=== PATIENT | female | born 1975 | race Caucasian/White ===

== ENCOUNTER 2017-03-20 17:24 | Emergency (ER) | payer MEDICARE, MEDICAID ==
[2017-03-20 18:11] LABS: ABSOLUTE BASOPHILS # (AUTO) 0.1 10^3/uL (0.0-0.2); ABSOLUTE EOSINOPHILS # (AUTO) 0.1 10^3/uL (0.0-0.6); ABSOLUTE LYMPHOCYTES (AUTO) 2.5 10^3/uL (0.5-4.7); ABSOLUTE MONOCYTES (AUTO) 0.5 10^3/uL (0.1-1.4); ABSOLUTE NEUT (AUTO) 5.6 10^3/uL (1.7-8.2); BASOPHILS % (AUTO) 0.8 % (0-2); EOSINOPHILS % (AUTO) 1.2 % (0-6); HEMATOCRIT 44.4 % (36.0-47.0); HEMOGLOBIN 14.6 g/dL (12.0-15.5); HGB HCT DIFFERENCE -0.6; LYMPHOCYTES % (AUTO) 28.1 % (13-45); MEAN CORPUSCULAR HEMOGLOBIN 26.4 pg (27.0-33.4); MEAN CORPUSCULAR HGB CONC 32.8 g/dL (32.0-36.0); MEAN CORPUSCULAR VOLUME 81 fl (80-97); RED BLOOD COUNT 5.51 10^6/uL (3.72-5.28); RED CELL DISTRIBUTION WIDTH 15.1 % (11.5-14.0); SEGMENTED NEUTROPHILS % (AUTO) 63.9 % (42-78); WHITE BLOOD COUNT 8.8 10^3/uL (4.0-10.5)
[2017-03-20] MEDS ORDERED: LIDOCAINE 5% (700 MG) TRANSDERMAL ADH..PATCH TP ONE (18:28)
[2017-03-20 18:29] LABS: ALANINE AMINOTRANSFERASE 39 U/L (9-52); ALBUMIN 4.4 g/dL (3.5-5.0); ALKALINE PHOSPHATASE 87 U/L (38-126); ANION GAP 11 (5-19); ASPARTATE AMINO TRANSFERASE 20 U/L (14-36); BILIRUBIN,DIRECT 0.3 mg/dL (0.0-0.4); BILIRUBIN,TOTAL 0.6 mg/dL (0.2-1.3); BLOOD UREA NITROGEN 9 mg/dL (7-20); CALCIUM 9.4 mg/dL (8.4-10.2); CARBON DIOXIDE 29 mmol/L (22-30); CHLORIDE 101 mmol/L (98-107); CREATINE KINASE 44 U/L (30-135); CREATININE RESULT 0.81 mg/dL (0.52-1.25); GLUCOSE 102 mg/dL (75-110); POTASSIUM 3.2 mmol/L (3.6-5.0); SODIUM 141.4 mmol/L (137-145); TOTAL PROTEIN 7.5 g/dL (6.3-8.2)
[2017-03-20] MEDS ORDERED: ACETAMINOPHEN 325 MG TABLET PO ONE (18:29)
--- NOTE | 2017-03-20 18:35 | RADIOLOGY REPORT (SQ) ---
EXAM DESCRIPTION: CHEST SINGLE VIEW COMPLETED DATE/TIME: 03/20/2017 6:21 pm REASON FOR STUDY: cp COMPARISON: None. EXAM PARAMETERS: NUMBER OF VIEWS: One view. TECHNIQUE: Single frontal radiographic view of the chest acquired. RADIATION DOSE: NA LIMITATIONS: None. FINDINGS: LUNGS AND PLEURA: No opacities, masses or pneumothorax. No pleural effusion. MEDIASTINUM AND HILAR STRUCTURES: No masses. Contour normal. HEART AND VASCULAR STRUCTURES: Heart normal in size. Normal vasculature. BONES: No acute findings. HARDWARE: None in the chest. OTHER: No other significant finding. IMPRESSION: NO ACUTE RADIOGRAPHIC FINDING IN THE CHEST. TECHNICAL DOCUMENTATION: JOB ID: [id number]
[2017-03-20] MEDS ORDERED: DIAZEPAM INJ 10 MG/2 ML DISP.SYRIN IV ONE (18:40)
[2017-03-20 18:41] LABS: CREATINE KINASE MB < 0.22 ng/mL (<4.55); TROPONIN I < 0.012 ng/mL
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
[2017-03-20] MEDS ORDERED: DIAZEPAM INJ 10 MG/2 ML DISP.SYRIN ONE (19:09)
[2017-03-20] MEDS ORDERED: FENTANYL CITRATE INJ/PF 100 MCG/2 ML AMPUL IV ONE (19:12)
[2017-03-20] MEDS ORDERED: MAGNESIUM OXIDE 400 MG TABLET PO ONE (19:53)
[2017-03-20] MEDS ORDERED: POTASSIUM CHLORIDE 20 MEQ/15 ML UDCUP PO ONE (19:53)
[2017-03-20 22:08] VITALS: BP 117/78
--- NOTE | 2017-03-21 07:55 | EKG REPORT ---
SEVERITY:- ABNORMAL ECG - SINUS RHYTHM PROBABLE POSTERIOR INFARCT : Confirmed by: Rm Means MD 21-Mar-2017 07:54:42
== END 2017-03-20 22:15 | disposition home or self-care (01) ==
LOC: ER 17:24
DX: R07.9 Chest pain, unspecified (principal); F41.9 Anxiety disorder, unspecified; I10 Essential (primary) hypertension; R20.0 Anesthesia of skin; Z88.6 Allergy status to analgesic agent
CPT/HCPCS: 93005; 99285; 96374; 36415; 82553; 82550; 85025; 80053; 84484; 71010; 93010; A9270 ×3; J3360; J3010

== ENCOUNTER 2017-03-29 14:55 | Emergency (ER) | payer MEDICARE, MEDICAID ==
--- NOTE | 2017-03-29 16:45 | ER Document Report ---
ED Medical Screen (RME) - General Information source: Patient TRAVEL OUTSIDE OF THE [place] IN LAST 30 DAYS: No - HPI Patient complains to provider of: chest pain Associated Symptoms: Other - see above <DIANA SARGENT - Last Filed: 03/29/17 16:40> <EMILY TOWNSEND - Last Filed: 04/04/17 10:50> - General Chief Complaint: Chest Pain Stated Complaint: CHEST PAIN Time Seen by Provider: 03/29/17 16:36 Notes: Patient is a 41 year old female who presents to the ED with complaints of chest pain with onset 30 minutes after mopping and sweeping. Patient states the pain radiates into her left shoulder and neck. Patient reports SOB and states it hurts to breath. Patient has a history of depression and anxiety. (DIANA SARGENT) - Related Data Allergies/Adverse Reactions: aspirin Allergy (Verified 03/29/17 16:35) ibuprofen Allergy (Verified 03/29/17 16:35) NSAIDS (Non-Steroidal Anti-Inflamma Allergy (Verified 03/29/17 16:35) Hives Past Medical History - General Information source: Patient - Social History Cigarette use (# per day): No Renal/ Medical History: Denies: Hx Peritoneal Dialysis <DIANA SARGENT - Last Filed: 03/29/17 16:40> Review of Systems - Review of Systems Constitutional: No symptoms reported EENT: No symptoms reported Cardiovascular: See HPI, Chest pain Respiratory: See HPI, Hurts to breathe, Short of breath Gastrointestinal: No symptoms reported Genitourinary: No symptoms reported Female Genitourinary: No symptoms reported Musculoskeletal: No symptoms reported Skin: No symptoms reported Hematologic/Lymphatic: No symptoms reported Neurological/Psychological: No symptoms reported <DIANA SARGENT - Last Filed: 03/29/17 16:40> Physical Exam - General General appearance: Anxious In distress: None - HEENT Head: Normocephalic, Atraumatic Eyes: Normal Extraocular movements intact: Yes Pupils: PERRL - Respiratory Respiratory status: No respiratory distress Breath sounds: Normal - Cardiovascular Rhythm: Regular Heart sounds: Normal auscultation Murmur: No - Abdominal Distension: No distension - Back Back: Normal - Extremities General upper extremity: Normal inspection, Normal ROM General lower extremity: Normal inspection, Normal ROM - Neurological Neuro grossly intact: Yes - Psychological Associated symptoms: Anxious - Skin Skin Temperature: Warm Skin Moisture: Dry Skin Color: Normal <DIANA SARGENT - Last Filed: 03/29/17 16:40> Course - Laboratory Result Diagrams: 03/29/17 17:09 03/29/17 17:09 <EMILY TOWNSEND - Last Filed: 04/04/17 10:50> - Vital Signs Vital signs: Temp Pulse Resp BP Pulse Ox 98.3 F 97 23 H 114/76 100 03/29/17 19:17 03/29/17 15:19 03/29/17 19:01 03/29/17 19:01 03/29/17 19:01 - Laboratory Laboratory results interpreted by me: 03/29/17 17:09 RBC 5.53 H MCH 26.6 L RDW 15.6 H Doctor's Discharge <DIANA SARGENT - Last Filed: 03/29/17 16:40> <EMILY TOWNSEND - Last Filed: 04/04/17 10:50> - Discharge Clinical Impression: Cervical strain, chest wall pain Condition: Stable Disposition: HOME, SELF-CARE Instructions: Chest Wall Pain ([facility]) Additional Instructions: Muscle Strain You have strained a muscle -- torn the fibers within the muscle. This often occurs with strenuous exertion, or during an injury that suddenly stretches the muscle. The seriousness of a strain varies. Some strains heal within days, others cause problems for months. X-rays cannot show a muscle strain. X-rays are taken only if symptoms suggest that a fracture could be present. The usual treatment of a muscle strain is rest and ice packs. Sometimes, a sling, splint, or crutches may be necessary to rest the muscle. The muscle can be used again once pain subsides. Severe strains require a special exercise and stretching program to prevent permanent stiffness and disability. Your doctor will advise you if this will be necessary. Call the doctor immediately if pain or swelling becomes severe, or if numbness or discoloration develop. Chest Wall Pain Your chest pain has been diagnosed as coming from the chest wall. This is often caused by straining the muscles or joints in the chest during physical activity, direct trauma, coughing, or vigorous vomiting. Persons with arthritis are especially prone to this type of pain, due to inflammation of the cartilage joints near the breast bone. Occasionally, no cause can be found. Rest from strenuous physical activity. This kind of chest pain is usually made worse by movement of the chest. Depending on the symptoms, we may prescribe medicine for pain, muscle relaxation, and antiinflammatory effects. If the pain is new, and seems to be due to muscle strain, cold packs can help. Otherwise, apply gentle warmth to the painful area for 15 minutes every hour or two. You should contact the doctor immediately if things change. Further evaluation is needed if you develop a fever or cough, if the nature of the pain changes, or if you become short of breath. Follow-up with your primary care physician in 3-4 days return for increasing worsening or new symptoms Scribe Documentation - Scribe Written by Deepa:: deepa Saini, 03/29/2017, [id number] acting as scribe for :: Dawood <DIANA SARGENT - Last Filed: 03/29/17 16:40>
[2017-03-29 17:38] LABS: ABSOLUTE BASOPHILS # (AUTO) 0.1 10^3/uL (0.0-0.2); ABSOLUTE EOSINOPHILS # (AUTO) 0.1 10^3/uL (0.0-0.6); ABSOLUTE LYMPHOCYTES (AUTO) 2.8 10^3/uL (0.5-4.7); ABSOLUTE MONOCYTES (AUTO) 0.7 10^3/uL (0.1-1.4); ABSOLUTE NEUT (AUTO) 6.7 10^3/uL (1.7-8.2); BASOPHILS % (AUTO) 0.7 % (0-2); EOSINOPHILS % (AUTO) 0.9 % (0-6); HEMATOCRIT 44.9 % (36.0-47.0); HEMOGLOBIN 14.7 g/dL (12.0-15.5); HGB HCT DIFFERENCE -0.8; LYMPHOCYTES % (AUTO) 27.5 % (13-45); MEAN CORPUSCULAR HEMOGLOBIN 26.6 pg (27.0-33.4); MEAN CORPUSCULAR HGB CONC 32.7 g/dL (32.0-36.0); MEAN CORPUSCULAR VOLUME 81 fl (80-97); MONOCYTES % (AUTO) 6.6 % (3-13); RED BLOOD COUNT 5.53 10^6/uL (3.72-5.28); RED CELL DISTRIBUTION WIDTH 15.6 % (11.5-14.0); SEGMENTED NEUTROPHILS % (AUTO) 64.3 % (42-78); WHITE BLOOD COUNT 10.4 10^3/uL (4.0-10.5)
--- NOTE | 2017-03-29 17:51 | RADIOLOGY REPORT (SQ) ---
EXAM DESCRIPTION: CHEST SINGLE VIEW COMPLETED DATE/TIME: 03/29/2017 5:43 pm REASON FOR STUDY: CP COMPARISON: 03/20/2017 EXAM PARAMETERS: NUMBER OF VIEWS: One view. TECHNIQUE: Single frontal radiographic view of the chest acquired. RADIATION DOSE: NA LIMITATIONS: None. FINDINGS: LUNGS AND PLEURA: No opacities, masses or pneumothorax. No pleural effusion. MEDIASTINUM AND HILAR STRUCTURES: No masses. Contour normal. HEART AND VASCULAR STRUCTURES: Heart normal in size. Normal vasculature. BONES: No acute findings. HARDWARE: None in the chest. OTHER: No other significant finding. IMPRESSION: NO ACUTE RADIOGRAPHIC FINDING IN THE CHEST. TECHNICAL DOCUMENTATION: JOB ID: [id number]
[2017-03-29 17:58] LABS: ALANINE AMINOTRANSFERASE 16 U/L (9-52); ALBUMIN 3.7 g/dL (3.5-5.0); ALKALINE PHOSPHATASE 75 U/L (38-126); ANION GAP 10 (5-19); ASPARTATE AMINO TRANSFERASE 25 U/L (14-36); BILIRUBIN,DIRECT 0.4 mg/dL (0.0-0.4); BILIRUBIN,TOTAL 0.7 mg/dL (0.2-1.3); BLOOD UREA NITROGEN 10 mg/dL (7-20); CALCIUM 8.7 mg/dL (8.4-10.2); CARBON DIOXIDE 22 mmol/L (22-30); CHLORIDE 107 mmol/L (98-107); CREATINE KINASE 42 U/L (30-135); CREATININE RESULT 0.76 mg/dL (0.52-1.25); GLUCOSE 85 mg/dL (75-110); POTASSIUM 3.9 mmol/L (3.6-5.0); TOTAL PROTEIN 6.5 g/dL (6.3-8.2)
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
[2017-03-29 19:14] VITALS: BP 114/76
--- NOTE | 2017-03-29 22:42 | EKG REPORT ---
SEVERITY:- NORMAL ECG - SINUS RHYTHM : Confirmed by: Juan England 29-Mar-2017 22:42:22
== END 2017-03-29 19:17 | disposition home or self-care (01) ==
LOC: ER 14:55
DX: S16.1XXA Strain of muscle, fascia and tendon at neck level, initial encounter (principal); R07.89 Other chest pain; R42 Dizziness and giddiness; R11.0 Nausea; X58.XXXA Exposure to other specified factors, initial encounter; Y93.E5 Activity, floor mopping and cleaning; Y92.009 Unspecified place in unspecified non-institutional (private) residence as the place of occurrence of the external cause; E78.00 Pure hypercholesterolemia, unspecified
CPT/HCPCS: 36415; 71010; 80053; 82550; 82553; 84484; 85025; 85379; 93005; 93010; 99285

== ENCOUNTER 2017-04-04 10:14 | Emergency (ER) | payer MEDICARE, MEDICAID ==
[2017-04-04] MEDS ORDERED: MAG HYDROX/AL HYDROX/SIMETH SUSP 30 ML UDCUP PO ONE (10:40)
[2017-04-04] MEDS ORDERED: MORPHINE SULFATE 10 MG/ML INJ IV PRN (10:40)
[2017-04-04] MEDS ORDERED: METOCLOPRAMIDE HCL ORAL SOLN 10 MG/10 ML UDCUP PO ONE (10:40)
[2017-04-04] MEDS ORDERED: LIDOCAINE 2% VISCOUS SOLN 20 ML UDCUP PO ONE (10:40)
--- NOTE | 2017-04-04 10:41 | ER Document Report ---
ED Medical Screen (RME) - General Chief Complaint: Chest Pain Stated Complaint: CHEST PAIN Time Seen by Provider: 04/04/17 10:39 Mode of Arrival: Ambulatory Information source: Patient Notes: This is a 41-year-old female with a history of depression and presents to the emergency room with intermittent retrosternal chest pressure for the past 3 days. Patient does state that it is associated with shortness of breath. She states that the pain seems to be worse with movement. She states that the pain sometimes will radiate to the left upper extremity. TRAVEL OUTSIDE OF THE [place] IN LAST 30 DAYS: No - Related Data Allergies/Adverse Reactions: aspirin Allergy (Verified 03/29/17 16:35) ibuprofen Allergy (Verified 03/29/17 16:35) NSAIDS (Non-Steroidal Anti-Inflamma Allergy (Verified 03/29/17 16:35) Hives Past Medical History - Social History Chew tobacco use (# tins/day): No Drug Abuse: None - Past Medical History Cardiac Medical History: Reports: Hx Hypercholesterolemia Renal/ Medical History: Denies: Hx Peritoneal Dialysis Musculoskeltal Medical History: Reports Hx Arthritis - OA Past Surgical History: Reports: Hx Gynecologic Surgery - hysterectomy
[2017-04-04 10:58] LABS: ABSOLUTE EOSINOPHILS # (AUTO) 0.1 10^3/uL (0.0-0.6); ABSOLUTE LYMPHOCYTES (AUTO) 1.7 10^3/uL (0.5-4.7); ABSOLUTE MONOCYTES (AUTO) 0.4 10^3/uL (0.1-1.4); ABSOLUTE NEUT (AUTO) 5.4 10^3/uL (1.7-8.2); BASOPHILS % (AUTO) 0.5 % (0-2); EOSINOPHILS % (AUTO) 1.5 % (0-6); HEMATOCRIT 42.6 % (36.0-47.0); HEMOGLOBIN 14.3 g/dL (12.0-15.5); HGB HCT DIFFERENCE 0.3; LYMPHOCYTES % (AUTO) 21.8 % (13-45); MEAN CORPUSCULAR HEMOGLOBIN 27.3 pg (27.0-33.4); MEAN CORPUSCULAR HGB CONC 33.5 g/dL (32.0-36.0); MEAN CORPUSCULAR VOLUME 82 fl (80-97); MONOCYTES % (AUTO) 5.6 % (3-13); RED BLOOD COUNT 5.23 10^6/uL (3.72-5.28); RED CELL DISTRIBUTION WIDTH 15.2 % (11.5-14.0); SEGMENTED NEUTROPHILS % (AUTO) 70.6 % (42-78); WHITE BLOOD COUNT 7.6 10^3/uL (4.0-10.5)
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
--- NOTE | 2017-04-04 11:07 | RADIOLOGY REPORT (SQ) ---
EXAM DESCRIPTION: CHEST SINGLE VIEW COMPLETED DATE/TIME: 04/04/2017 10:51 am REASON FOR STUDY: cp COMPARISON: 03/29/2017 EXAM PARAMETERS: NUMBER OF VIEWS: One view. TECHNIQUE: Single frontal radiographic view of the chest acquired. RADIATION DOSE: NA LIMITATIONS: None. FINDINGS: LUNGS AND PLEURA: No opacities, masses or pneumothorax. No pleural effusion. MEDIASTINUM AND HILAR STRUCTURES: No masses. Contour normal. HEART AND VASCULAR STRUCTURES: Heart normal in size. Normal vasculature. BONES: No acute findings. HARDWARE: None in the chest. OTHER: No other significant finding. IMPRESSION: NO ACUTE RADIOGRAPHIC FINDING IN THE CHEST. TECHNICAL DOCUMENTATION: JOB ID: [id number]
[2017-04-04] MEDS ORDERED: BUSPIRONE HCL 10 MG TABLET PO ONE (11:09)
[2017-04-04] MEDS ORDERED: TRAMADOL HCL 50 MG TABLET PO ONE (11:09)
[2017-04-04] MEDS ORDERED: VENLAFAXINE HCL 75 MG TABLET PO ONE (11:09)
[2017-04-04 11:12] LABS: ALANINE AMINOTRANSFERASE 27 U/L (9-52); ALBUMIN 3.8 g/dL (3.5-5.0); ALKALINE PHOSPHATASE 93 U/L (38-126); ANION GAP 9 (5-19); ASPARTATE AMINO TRANSFERASE 18 U/L (14-36); BILIRUBIN,DIRECT 0.3 mg/dL (0.0-0.4); BILIRUBIN,TOTAL 0.4 mg/dL (0.2-1.3); BLOOD UREA NITROGEN 11 mg/dL (7-20); CALCIUM 9.4 mg/dL (8.4-10.2); CARBON DIOXIDE 27 mmol/L (22-30); CHLORIDE 105 mmol/L (98-107); CREATINE KINASE 35 U/L (30-135); CREATININE RESULT 0.86 mg/dL (0.52-1.25); GLUCOSE 89 mg/dL (75-110); POTASSIUM 4.1 mmol/L (3.6-5.0); SODIUM 140.6 mmol/L (137-145); TOTAL PROTEIN 6.6 g/dL (6.3-8.2)
[2017-04-04 11:22] LABS: CREATINE KINASE MB < 0.22 ng/mL (<4.55); TROPONIN I < 0.012 ng/mL
--- NOTE | 2017-04-04 13:39 | EKG REPORT ---
SEVERITY:- NORMAL ECG - SINUS RHYTHM : Confirmed by: Roberta Erickson MD 04-Apr-2017 13:38:34
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
[2017-04-04 13:50] VITALS: BP 122/76
== END 2017-04-04 13:50 | disposition home or self-care (01) ==
LOC: ER 10:14
DX: R07.9 Chest pain, unspecified (principal); F32.9 Major depressive disorder, single episode, unspecified; F41.9 Anxiety disorder, unspecified; Z79.899 Other long term (current) drug therapy
CPT/HCPCS: 93005; 99285; 36415; 82553; 82550; 85025; 80053; 84484; 71010; 93010; J3490; A9270 ×4

== ENCOUNTER 2017-04-08 18:04 | Emergency (ER) | payer MEDICARE, OTHER, MEDICAID ==
[2017-04-08 19:23] LABS: ABSOLUTE BASOPHILS # (AUTO) 0.1 10^3/uL (0.0-0.2); ABSOLUTE EOSINOPHILS # (AUTO) 0.1 10^3/uL (0.0-0.6); ABSOLUTE LYMPHOCYTES (AUTO) 1.8 10^3/uL (0.5-4.7); ABSOLUTE MONOCYTES (AUTO) 0.5 10^3/uL (0.1-1.4); ABSOLUTE NEUT (AUTO) 5.4 10^3/uL (1.7-8.2); BASOPHILS % (AUTO) 0.8 % (0-2); EOSINOPHILS % (AUTO) 0.9 % (0-6); HEMATOCRIT 41.1 % (36.0-47.0); HEMOGLOBIN 14.1 g/dL (12.0-15.5); HGB HCT DIFFERENCE 1.2; LYMPHOCYTES % (AUTO) 22.8 % (13-45); MEAN CORPUSCULAR HEMOGLOBIN 27.2 pg (27.0-33.4); MEAN CORPUSCULAR HGB CONC 34.4 g/dL (32.0-36.0); MEAN CORPUSCULAR VOLUME 79 fl (80-97); MONOCYTES % (AUTO) 6.4 % (3-13); RED BLOOD COUNT 5.19 10^6/uL (3.72-5.28); RED CELL DISTRIBUTION WIDTH 15.1 % (11.5-14.0); SEGMENTED NEUTROPHILS % (AUTO) 69.1 % (42-78); WHITE BLOOD COUNT 7.8 10^3/uL (4.0-10.5)
[2017-04-08 19:50] LABS: ALANINE AMINOTRANSFERASE 27 U/L (9-52); ALKALINE PHOSPHATASE 86 U/L (38-126); ANION GAP 13 (5-19); ASPARTATE AMINO TRANSFERASE 16 U/L (14-36); BILIRUBIN,DIRECT 0.3 mg/dL (0.0-0.4); BILIRUBIN,TOTAL 0.7 mg/dL (0.2-1.3); BLOOD UREA NITROGEN 13 mg/dL (7-20); CALCIUM 9.6 mg/dL (8.4-10.2); CARBON DIOXIDE 24 mmol/L (22-30); CHLORIDE 109 mmol/L (98-107); CREATININE RESULT 0.94 mg/dL (0.52-1.25); GLUCOSE 100 mg/dL (75-110); POTASSIUM 3.1 mmol/L (3.6-5.0); SODIUM 146.4 mmol/L (137-145)
[2017-04-08 19:53] LABS: ALCOHOL < 10 mg/dL (NONE DETECTED)
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
[2017-04-08] MEDS ORDERED: ACETAMINOPHEN 325 MG TABLET PO ONE (21:40)
[2017-04-08 21:53] LABS: APPEARANCE,URINE CLOUDY; BILIRUBIN,URINE NEGATIVE (NEGATIVE); GLUCOSE, URINE NEGATIVE (NEGATIVE); KETONES,URINE NEGATIVE (NEGATIVE); LEUKOCYTE ESTERASE,URINE NEGATIVE (NEGATIVE); NITRITE,URINE NEGATIVE (NEGATIVE); PROTEIN,URINE NEGATIVE (NEGATIVE); URINE SPECIFIC GRAVITY 1.032; UROBILINOGEN,URINE NEGATIVE mg/dL (<2.0)
[2017-04-08 22:03] LABS: URINE BARBITURATES SCREEN NEGATIVE; URINE METHADONE SCREEN NEGATIVE; URINE OPIATES LOW NEGATIVE; URINE PHENCYCLIDINE SCREEN NEGATIVE
[2017-04-08] MEDS ORDERED: DIAZEPAM 5 MG TABLET PO ONE (23:06)
[2017-04-09] MEDS ORDERED: BUSPIRONE HCL 10 MG TABLET PO ONE (05:05)
--- NOTE | 2017-04-09 09:43 | ER Document Report ---
Doctor's Note Notes: 04/09/17 09:40 Medical rounds: Chart reviewed and patient interviewed briefly. Vital signs are stable. Laboratory values are satisfactory. Patient is alert, oriented, and conversant. She denies somatic complaints. She is medically stable, pending psych. evaluation.
--- NOTE | 2017-04-09 12:10 | EKG REPORT ---
SEVERITY:- OTHERWISE NORMAL ECG - SINUS RHYTHM VENTRICULAR PREMATURE COMPLEX BORDERLINE LEFT AXIS DEVIATION : Confirmed by: Roberta Erickson MD 09-Apr-2017 12:10:24
[2017-04-09] MEDS ORDERED: ONDANSETRON 4 MG TAB.RAPDIS PO ONE (13:05)
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
[2017-04-09 14:13] VITALS: BP 133/71
== END 2017-04-09 14:13 | disposition home or self-care (01) ==
LOC: ER 18:04
DX: F32.9 Major depressive disorder, single episode, unspecified (principal); F17.200 Nicotine dependence, unspecified, uncomplicated; Z79.899 Other long term (current) drug therapy
CPT/HCPCS: 93005; 99284; 36415; 80307 ×4; 84703; 85025; 80053; 81001; 93010; A9270 ×4; S0119

== ENCOUNTER 2017-05-26 17:20 | Emergency (ER) | payer MEDICARE, MEDICAID ==
[2017-05-26] MEDS ORDERED: NORMAL SALINE 1000 ML 1,000 ML IV ONE (18:05)
[2017-05-26] MEDS ORDERED: ONDANSETRON HCL INJ/PF 4 MG/2 ML SDV IV ONE (18:05)
--- NOTE | 2017-05-26 18:06 | ER Document Report ---
ED Medical Screen (RME) - General Chief Complaint: Epigastric Pain Stated Complaint: RIB AND CHEST PAIN Time Seen by Provider: 05/26/17 18:03 Mode of Arrival: Wheelchair Information source: Patient TRAVEL OUTSIDE OF THE [place] IN LAST 30 DAYS: No - HPI Patient complains to provider of: abd pain Onset: This afternoon - pt . ate at [employer] and then developed RUQ abd pain with nausea. Also had episode of lower chest., upper abd pain - Related Data Allergies/Adverse Reactions: aspirin Allergy (Verified 05/26/17 17:27) ibuprofen Allergy (Verified 05/26/17 17:27) NSAIDS (Non-Steroidal Anti-Inflamma Allergy (Verified 05/26/17 17:27) Hives Past Medical History - Social History Frequency of alcohol use: None Drug Abuse: None - Past Medical History Cardiac Medical History: Reports: Hx Hypercholesterolemia Renal/ Medical History: Denies: Hx Peritoneal Dialysis Musculoskeltal Medical History: Reports Hx Arthritis - OA Past Surgical History: Reports: Hx Gynecologic Surgery - hysterectomy Physical Exam - Vital signs Vitals: Temp Pulse Resp BP Pulse Ox 98.1 F 98 18 150/74 H 98 05/26/17 17:27 05/26/17 17:27 05/26/17 17:27 05/26/17 17:27 05/26/17 17:27 Course - Vital Signs Vital signs: Temp Pulse Resp BP Pulse Ox 98.1 F 98 18 150/74 H 98 05/26/17 17:27 05/26/17 17:27 05/26/17 17:27 05/26/17 17:27 05/26/17 17:27
[2017-05-26 19:10] LABS: ABSOLUTE BASOPHILS # (AUTO) 0.1 10^3/uL (0.0-0.2); ABSOLUTE EOSINOPHILS # (AUTO) 0.1 10^3/uL (0.0-0.6); ABSOLUTE LYMPHOCYTES (AUTO) 1.9 10^3/uL (0.5-4.7); ABSOLUTE MONOCYTES (AUTO) 0.6 10^3/uL (0.1-1.4); ABSOLUTE NEUT (AUTO) 6.8 10^3/uL (1.7-8.2); BASOPHILS % (AUTO) 0.5 % (0-2); EOSINOPHILS % (AUTO) 0.8 % (0-6); HEMATOCRIT 40.4 % (36.0-47.0); HEMOGLOBIN 14.1 g/dL (12.0-15.5); HGB HCT DIFFERENCE 1.9; LYMPHOCYTES % (AUTO) 20.2 % (13-45); MEAN CORPUSCULAR HEMOGLOBIN 27.4 pg (27.0-33.4); MEAN CORPUSCULAR HGB CONC 34.9 g/dL (32.0-36.0); MEAN CORPUSCULAR VOLUME 78 fl (80-97); MONOCYTES % (AUTO) 6.1 % (3-13); RED BLOOD COUNT 5.15 10^6/uL (3.72-5.28); RED CELL DISTRIBUTION WIDTH 14.6 % (11.5-14.0); SEGMENTED NEUTROPHILS % (AUTO) 72.4 % (42-78); WHITE BLOOD COUNT 9.3 10^3/uL (4.0-10.5)
[2017-05-26 19:15] LABS: APPEARANCE,URINE CLOUDY; BILIRUBIN,URINE NEGATIVE (NEGATIVE); GLUCOSE, URINE NEGATIVE (NEGATIVE); KETONES,URINE NEGATIVE (NEGATIVE); LEUKOCYTE ESTERASE,URINE SMALL (NEGATIVE); NITRITE,URINE NEGATIVE (NEGATIVE); PROTEIN,URINE NEGATIVE (NEGATIVE); URINE SPECIFIC GRAVITY 1.023; UROBILINOGEN,URINE NEGATIVE mg/dL (<2.0)
[2017-05-26 19:25] LABS: ALANINE AMINOTRANSFERASE 41 U/L (9-52); ALBUMIN 4.5 g/dL (3.5-5.0); ALKALINE PHOSPHATASE 92 U/L (38-126); ANION GAP 11 (5-19); ASPARTATE AMINO TRANSFERASE 29 U/L (14-36); BILIRUBIN,DIRECT 0.3 mg/dL (0.0-0.4); BILIRUBIN,TOTAL 0.5 mg/dL (0.2-1.3); BLOOD UREA NITROGEN 16 mg/dL (7-20); CALCIUM 9.5 mg/dL (8.4-10.2); CARBON DIOXIDE 25 mmol/L (22-30); CHLORIDE 105 mmol/L (98-107); CREATINE KINASE 49 U/L (30-135); CREATININE RESULT 0.87 mg/dL (0.52-1.25); GLUCOSE 124 mg/dL (75-110); LIPASE 36.6 U/L (23-300); POTASSIUM 3.8 mmol/L (3.6-5.0); SODIUM 141.4 mmol/L (137-145); TOTAL PROTEIN 7.5 g/dL (6.3-8.2)
[2017-05-26 19:38] LABS: CREATINE KINASE MB < 0.22 ng/mL (<4.55); TROPONIN I < 0.012 ng/mL
--- NOTE | 2017-05-26 20:48 | RADIOLOGY REPORT (SQ) ---
EXAM DESCRIPTION: U/S ABDOMEN LIMITED W/O DOP COMPLETED DATE/TIME: 05/26/2017 8:38 pm REASON FOR STUDY: RUQ pain COMPARISON: None. TECHNIQUE: Dynamic and static grayscale images acquired of the abdomen and recorded on PACS. Additio nal selected color Doppler and spectral images recorded. LIMITATIONS: None. FINDINGS: PANCREAS: The pancreas is obscured by overlying bowel gas. LIVER: No masses. Echotexture normal. LIVER VASCULATURE: Normal directional flow of the main portal vein and hepatic veins. GALLBLADDER: No stones. Normal wall thickness. No pericholecystic fluid. ULTRASOUND-DETECTED RALPH'S SIGN: Positive. INTRAHEPATIC DUCTS AND COMMON DUCT: CBD and intrahepatic ducts normal caliber. No filling defects. INFERIOR VENA CAVA: Not visualized. AORTA: No aneurysm. RIGHT KIDNEY: Normal size. Normal echogenicity. No solid or suspicious masses. No hydronephrosis. No calcifications. PERITONEAL AND RIGHT PLEURAL SPACE: No ascites or effusions. OTHER: No other significant findings. IMPRESSION: Positive sonographic Ralph sign otherwise negative gallbladder ultrasound. TECHNICAL DOCUMENTATION: JOB ID: [id number] [employer]- All Rights Reserved
[2017-05-26] MEDS ORDERED: LIDOCAINE 2% VISCOUS SOLN 20 ML UDCUP PO ONE (20:53)
[2017-05-26] MEDS ORDERED: MAG HYDROX/AL HYDROX/SIMETH SUSP 30 ML UDCUP PO ONE (20:53)
[2017-05-26] MEDS ORDERED: METOCLOPRAMIDE HCL ORAL SOLN 10 MG/10 ML UDCUP PO ONE (20:53)
[2017-05-26] MEDS ORDERED: FAMOTIDINE 20 MG TABLET PO ONE (20:54)
--- NOTE | 2017-05-26 21:14 | ER Document Report ---
ED Cardiac - General Chief Complaint: Epigastric Pain Stated Complaint: RIB AND CHEST PAIN Time Seen by Provider: 05/26/17 18:03 Mode of Arrival: Wheelchair Notes: Patient is a 41-year-old female with a past medical history of hypertension, anxiety and depression who presents to the emergency department with epigastric and right upper quadrant abdominal pain that started after she ate [employer] for lunch. He reports approximately 30 minutes after eating fried chicken salad she developed a stabbing, constant pain to her epigastrium and right upper quadrant. Nothing has improved or worsened that pain. She denies a history of similar symptoms in the past. She denies any associated chest pain or shortness of breath. Does report that she has had 8 episodes of nonbilious vomiting since that time. Denies a history of similar symptoms in the past. She has not seen her primary care doctor regarding today's concerns. TRAVEL OUTSIDE OF THE [place] IN LAST 30 DAYS: No - Related Data Allergies/Adverse Reactions: aspirin Allergy (Verified 05/26/17 17:27) ibuprofen Allergy (Verified 05/26/17 17:27) NSAIDS (Non-Steroidal Anti-Inflamma Allergy (Verified 05/26/17 17:27) Hives Past Medical History - General Information source: Patient - Social History Smoking Status: Never Smoker Frequency of alcohol use: None Drug Abuse: None Lives with: Family Family History: CAD - Past Medical History Cardiac Medical History: Reports: Hx Hypercholesterolemia Renal/ Medical History: Denies: Hx Peritoneal Dialysis Musculoskeltal Medical History: Reports Hx Arthritis - OA Past Surgical History: Reports: Hx Gynecologic Surgery - hysterectomy Review of Systems - Review of Systems Notes: Constitutional: Negative for fever. HENT: Negative for sore throat. Eyes: Negative for visual changes. Cardiovascular: Negative for chest pain. Respiratory: Negative for shortness of breath. Gastrointestinal: Positive for epigastric abdominal pain and vomiting Genitourinary: Negative for dysuria. Musculoskeletal: Negative for back pain. Skin: Negative for rash. Neurological: Negative for headaches, weakness or numbness. 10 point ROS negative except as marked above and in HPI. Physical Exam - Vital signs Vitals: Temp Pulse Resp BP Pulse Ox 98.1 F 98 18 150/74 H 98 05/26/17 17:27 05/26/17 17:27 05/26/17 17:27 05/26/17 17:27 05/26/17 17:27 Interpretation: Hypertensive Notes: PHYSICAL EXAMINATION: GENERAL: Appears anxious, uncomfortable HEAD: Atraumatic, normocephalic. EYES: Pupils equal round and reactive to light, extraocular movements intact, sclera anicteric, conjunctiva are normal. ENT: nares patent, oropharynx clear without exudates. Moderately dry mucous membranes. NECK: Normal range of motion, supple without lymphadenopathy LUNGS: Breath sounds clear to auscultation bilaterally and equal. No wheezes rales or rhonchi. HEART: Regular rate and rhythm without murmurs ABDOMEN: Soft, focal tenderness to the epigastrium on palpation. Otherwise no focal tenderness on exam. Negative Ralph sign. No rebound or guarding. Bowel sounds are present. EXTREMITIES: Normal range of motion, no pitting or edema. No cyanosis. NEUROLOGICAL: No focal neurological deficits. Moves all extremities spontaneously and on command. PSYCH: Anxious, tearful SKIN: Warm, Dry, normal turgor, no rashes or lesions noted. Course - Re-evaluation Re-evalutation: 05/26/17 21:14 Patient presents with epigastric abdominal pain with associated reflux symptoms most consistent with likely gastritis. Patient did have some associated vomiting but this has since resolved. Only epigastric abdominal tenderness appreciated on examination. Right upper quadrant ultrasound does not demonstrate any evidence of acute cholecystitis or cholelithiasis. Lipase is normal. No LFT changes. Based on history and exam, I do not suspect ACS, pulmonary embolus, SBO, mesenteric ischemia, acute pancreatitis, biliary pathology, or an abdominal aortic dissection. However, given the patient persisted with pain despite GI cocktail as well as famotidine, CT abdomen pelvis was obtained and again did not demonstrate any evidence of concerning pathology. At this time will discharge with return precautions and follow-up recommendations. Verbal discharge instructions given a the bedside and opportunity for questions given. Medication warnings reviewed. Patient is in agreement with this plan and has verbalized understanding of return precautions and the need for primary care follow-up. - Vital Signs Vital signs: Temp Pulse Resp BP Pulse Ox 98.2 F 75 17 126/82 H 97 05/27/17 01:29 05/27/17 01:29 05/27/17 01:29 05/27/17 01:29 05/27/17 01:29 - Laboratory Result Diagrams: 05/26/17 18:45 05/26/17 18:45 Laboratory results interpreted by me: 05/26/17 05/26/17 05/26/17 18:45 18:45 18:45 MCV 78 L RDW 14.6 H Glucose 124 H Ur Leukocyte Esterase SMALL H - Diagnostic Test Radiology reviewed: Reports reviewed Discharge - Discharge Clinical Impression: Epigastric abdominal pain Vomiting Qualifiers: Vomiting type: unspecified Vomiting Intractability: non-intractable Nausea presence: with nausea Qualified Code(s): R11.2 - Nausea with vomiting, unspecified Condition: Good Disposition: HOME, SELF-CARE Additional Instructions: Your symptoms appear to be most consistent with stomach or upper intestinal irritation. Please begin taking famotidine 40 mg in the morning and 40 mg at night. This medicine can be purchased directly [id number]. You may also take medicine such as Pepto-Bismol or Tums to assist with your pain. Please return to emergency department immediately if you have worsening of your pain, shortness of breath, vomiting, become unable to exert yourself due to pain or difficulty breathing, you pass out, or have any pain that radiates into your arms, jaw, or back. Please also return if you have any additional symptoms that are concerning to you.
[2017-05-26] MEDS ORDERED: LORAZEPAM INJ 2 MG/1 ML VIAL IV ONE (21:58)
[2017-05-26] MEDS ORDERED: MORPHINE SULFATE 10 MG/ML INJ IV PRN (23:34)
--- NOTE | 2017-05-27 01:19 | RADIOLOGY REPORT (SQ) ---
EXAM DESCRIPTION: CT ABD/PELVIS WITH IV ONLY COMPLETED DATE/TIME: 05/27/2017 12:46 am REASON FOR STUDY: eval persistent generalized ab pain, sbo COMPARISON: 05/26/2017. TECHNIQUE: CT scan of the abdomen and pelvis performed using helical scanning technique with dynamic intravenous contrast injection. No oral contrast. Images reviewed with lung, soft tissue, and bone windows. Reconstructed coronal and sagittal MPR images reviewed. Delayed images for evaluation of the urinary system also acquired. All images stored on PACS. All CT scanners at this facility use dose modulation, iterative reconstruction, and/or weight based d osing when appropriate to reduce radiation dose to as low as reasonably achievable (ALARA). [facility]: Dose Right [facility]: CareDose [facility]: Dose Right [facility]: Teradose 4D [facility]: [employer] CONTRAST TYPE AND DOSE: contrast/concentration: Isovue 370.00 mg/ml; Total Contrast Delivered: 100.0 ml; Total Saline Delivered: 72.0 ml RENAL FUNCTION: None required. The patient is less than 50 years old. RADIATION DOSE: Up-to-date CT equipment and radiation dose reduction techniques were employed. CTDIv ol: 18.6 - 18.6 mGy. DLP: 2152 mGy-cm.. LIMITATIONS: None. FINDINGS: LOWER CHEST: No significant findings. No nodules or infiltrates. Small dependent atelecta sis. LIVER: Normal size. No masses. No dilated ducts. SPLEEN: Normal size. No focal lesions. PANCREAS: No masses. No significant calcifications. No adjacent inflammation or peripancreatic fluid collections. Pancreatic duct not dilated. GALLBLADDER: No identified stones by CT criteria. No inflammatory changes to suggest cholecystitis. ADRENAL GLANDS: No significant masses or asymmetry. RIGHT KIDNEY AND URETER: No solid masses. No significant calcifications. No hydronephrosis or hyd roureter. LEFT KIDNEY AND URETER: No solid masses. No significant calcifications. No hydronephrosis or hydr oureter. AORTA AND VESSELS: No aneurysm. No dissection. Renal arteries, SMA, celiac without stenosis. RETROPERITONEUM: As below. BOWEL AND PERITONEAL CAVITY: Prominent nonspecific mesenteric and retroperitoneal lymph nodes include a 1.0 x 0.7 cm lymph node in the left paracentral abdomen, image 42 of series 3. Moderate right and transverse colonic stool retention. Minimal nonspecific fat streaking -fluid in the left pericolic gutter. APPENDIX: No evidence of appendicitis. Appendix not identified. PELVIS: No mass. No free fluid. Normal bladder. Uterus absent consistent with clinical history. ABDOMINAL WALL: No masses. No hernias. BONES: Moderate desiccated disc bulge at the L5-S1 level. OTHER: No other significant finding. IMPRESSION: No acute findings. TECHNICAL DOCUMENTATION: JOB ID: [id number] Quality ID # [id number]: Final reports with documentation of one or more dose reduction techniques (e.g., Au tomated exposure control, adjustment of the mA and/or kV according to patient size, use of iterative reconstruction technique) 2010 [employer]- All Rights Reserved
[2017-05-27 01:34] VITALS: BP 126/82
== END 2017-05-27 01:33 | disposition home or self-care (01) ==
LOC: ER 17:20
DX: R10.13 Epigastric pain (principal); R11.2 Nausea with vomiting, unspecified; R07.81 Pleurodynia; R07.9 Chest pain, unspecified; I10 Essential (primary) hypertension; F41.9 Anxiety disorder, unspecified; F32.9 Major depressive disorder, single episode, unspecified
CPT/HCPCS: 99284; 96361; 96374; 96375; 36415; 82553; 82550; 83690; 85025; 80053; 81001; 84484; 76705; 74177; A9270 ×2; J3490; J2270; J2060; J2405; J7030

== ENCOUNTER 2017-05-31 13:30 | Emergency (ER) | payer MEDICARE, MEDICAID ==
[2017-05-31] MEDS ORDERED: METOCLOPRAMIDE HCL INJ/PF 10 MG/2 ML SDV IV ONE (14:21)
--- NOTE | 2017-05-31 14:24 | ER Document Report ---
ED General - General Chief Complaint: Abdominal Pain Stated Complaint: NAUSEA/VOMITTING Time Seen by Provider: 05/31/17 14:16 Mode of Arrival: Ambulatory Information source: Patient Notes: 41-year-old female presents with history of hiatal hernia with complaints of nausea vomiting diarrhea. Patient notes she is a history of hypokalemia and is concerned with her nausea vomiting diarrhea and potassium may be low she denies any fevers or chills Patient has had multiple similar visits TRAVEL OUTSIDE OF THE [place] IN LAST 30 DAYS: No - HPI Onset: Other - 3 day duration Onset/Duration: Persistent, Waxing and waning Quality of pain: Achy Severity: Mild Pain Level: 1 Associated symptoms: Other Exacerbated by: Denies Relieved by: Denies Similar symptoms previously: Yes Recently seen / treated by doctor: Yes - Related Data Allergies/Adverse Reactions: aspirin Allergy (Verified 05/31/17 13:47) ibuprofen Allergy (Verified 05/31/17 13:47) NSAIDS (Non-Steroidal Anti-Inflamma Allergy (Verified 05/31/17 13:47) Hives Past Medical History - Social History Smoking Status: Never Smoker Cigarette use (# per day): No Chew tobacco use (# tins/day): No Smoking Education Provided: No Family History: CAD Patient has suicidal ideation: No - Past Medical History Cardiac Medical History: Reports: Hx Hypercholesterolemia Renal/ Medical History: Denies: Hx Peritoneal Dialysis Musculoskeltal Medical History: Reports Hx Arthritis - OA Past Surgical History: Reports: Hx Gynecologic Surgery - hysterectomy Review of Systems - Review of Systems Notes: REVIEW OF SYSTEMS: CONSTITUTIONAL : Denies fever, chills, or sweats. Denies recent illness. EENT: Denies eye, ear, throat, or mouth pain or symptoms. Denies nasal or sinus congestion or discharge. Denies throat, tongue, or mouth swelling or difficulty swallowing. CARDIOVASCULAR: Denies chest pain. Denies palpitations or racing or irregular heart beat. Denies ankle edema. RESPIRATORY: Denies cough, cold, or chest congestion. Denies shortness of breath, difficulty breathing, or wheezing. GASTROINTESTINAL: Admits to nausea vomiting diarrhea GENITOURINARY: Denies difficulty urinating, painful urination, burning, frequency, blood in urine, or discharge. FEMALE GENITOURINARY: Denies vaginal bleeding, heavy or abnormal periods, irregular periods. Denies vaginal discharge or odor. MUSCULOSKELETAL: Denies back or neck pain or stiffness. Denies joint pain or swelling. SKIN: Denies rash, lesions or sores. HEMATOLOGIC : Denies easy bruising or bleeding. LYMPHATIC: Denies swollen, enlarged glands. NEUROLOGICAL: Denies confusion or altered mental status. Denies passing out or loss of consciousness. Denies dizziness or lightheadedness. Denies headache. Denies weakness or paralysis or loss of use of either side. Denies problems with gait or speech. Denies sensory loss, numbness, or tingling. Denies seizures. PSYCHIATRIC: Denies anxiety or stress. Denies depression, suicidal ideation, or homicidal ideation. ALL OTHER SYSTEMS REVIEWED AND NEGATIVE. PHYSICAL EXAMINATION: GENERAL: Well-appearing, well-nourished and in no acute distress. HEAD: Atraumatic, normocephalic. EYES: Pupils equal round and reactive to light, extraocular movements intact, conjunctiva are normal. ENT: Nares patent, oropharynx clear without exudates. Moist mucous membranes. NECK: Normal range of motion, supple without lymphadenopathy LUNGS: Breath sounds clear to auscultation bilaterally and equal. No wheezes rales or rhonchi. HEART: Regular rate and rhythm without murmurs ABDOMEN: Soft, minimally tender epigastric region no rebound or guarding Female : deferred Musculoskeletal: Normal range of motion, no pitting or edema. No cyanosis. NEUROLOGICAL: Cranial nerves grossly intact. Normal speech, normal gait. Normal sensory, motor exams PSYCH: Normal mood, normal affect. SKIN: Warm, Dry, normal turgor, no rashes or lesions noted. Dictation was performed using [employer] voice recognition software Physical Exam - Vital signs Vitals: Temp Pulse Resp BP Pulse Ox 97.7 F 91 20 138/70 H 100 05/31/17 13:50 05/31/17 13:50 05/31/17 13:50 05/31/17 13:50 05/31/17 13:50 Course - Re-evaluation Re-evalutation: 05/31/17 14:[address] has [address] recent [address] ultrasound significant workup, there are no life- threatening issues noted on this patient's previous visit only 5 days ago However patient states she gets hypokalemia and is concerned with her nausea and vomiting. It is noted that she has been here 5 times in the past 2 months with similar concerns 05/31/17 21:39 Unfortunately patient's blood was hemolyzed twice however the third lab work did not note any significant abnormality, patient will be discharged home to follow-up with her primary care physician and her own GI specialist After performing a Medical Screening Examination, I estimate there is LOW risk for ACUTE APPENDICITIS, BOWEL OBSTRUCTION, ACUTE CHOLECYSTITIS, PERFORATED DIVERTICULITIS, INCARCERATED HERNIA, PANCREATITIS, PELVIC INFLAMMATORY DISEASE, PERFORATED ULCER, ECTOPIC , or TUBO-OVARIAN ABSCESS, thus I consider the discharge disposition reasonable. Also, there is no evidence or peritonitis , sepsis, or toxicity. I have reevaluated this patient multiple times and no significant life threatening changes are noted. The patient and I have discussed the diagnosis and risks, and we agree with discharging home with close follow-up with the understanding that symptoms and presentations can change. We also discussed returning to the Emergency Department immediately if new or worsening symptoms occur. We have discussed the symptoms which are most concerning (e.g., bloody stool, fever, changing or worsening pain, vomiting) that necessitate immediate return. - Vital Signs Vital signs: Temp Pulse Resp BP Pulse Ox 98.5 F 73 18 130/77 H 100 05/31/17 17:41 05/31/17 17:41 05/31/17 17:41 05/31/17 17:41 05/31/17 17:41 - Laboratory Result Diagrams: 05/31/17 15:04 05/31/17 17:08 Laboratory results interpreted by me: 05/31/17 05/31/17 15:04 17:08 RBC 5.90 H Hgb 16.2 H MCV 79 L RDW 14.6 H Potassium 3.5 L Chloride 110 H Carbon Dioxide 21 L Discharge - Discharge Clinical Impression: Epigastric abdominal pain Vomiting Qualifiers: Vomiting type: unspecified Vomiting Intractability: non-intractable Nausea presence: with nausea Qualified Code(s): R11.2 - Nausea with vomiting, unspecified Condition: Stable Disposition: HOME, SELF-CARE Instructions: Abdominal Pain ([facility]) Additional Instructions: Follow up with your physician tomorrow for further care or return to the ED IMMEDIATELY if symptoms worsen or new concerns occur. If you cannot afford to follow up with your primary care physician a list of low cost clinics have been provided at the end of your discharge papers as well. Prescriptions: Metoclopramide HCl [Reglan 10 mg Tablet] 1 - 2 tab PO Q6 #25 tablet
[2017-05-31 15:27] LABS: ABSOLUTE BASOPHILS # (AUTO) 0.1 10^3/uL (0.0-0.2); ABSOLUTE EOSINOPHILS # (AUTO) 0.1 10^3/uL (0.0-0.6); ABSOLUTE MONOCYTES (AUTO) 0.5 10^3/uL (0.1-1.4); ABSOLUTE NEUT (AUTO) 6.4 10^3/uL (1.7-8.2); BASOPHILS % (AUTO) 0.8 % (0-2); HEMATOCRIT 46.6 % (36.0-47.0); HEMOGLOBIN 16.2 g/dL (12.0-15.5); LYMPHOCYTES % (AUTO) 21.9 % (13-45); MEAN CORPUSCULAR HEMOGLOBIN 27.5 pg (27.0-33.4); MEAN CORPUSCULAR HGB CONC 34.8 g/dL (32.0-36.0); MEAN CORPUSCULAR VOLUME 79 fl (80-97); MONOCYTES % (AUTO) 5.8 % (3-13); RED CELL DISTRIBUTION WIDTH 14.6 % (11.5-14.0); SEGMENTED NEUTROPHILS % (AUTO) 70.5 % (42-78); WHITE BLOOD COUNT 9.1 10^3/uL (4.0-10.5)
[2017-05-31 17:38] LABS: ALANINE AMINOTRANSFERASE 31 U/L (9-52); ALBUMIN 4.5 g/dL (3.5-5.0); ALKALINE PHOSPHATASE 102 U/L (38-126); ANION GAP 14 (5-19); ASPARTATE AMINO TRANSFERASE 31 U/L (14-36); BILIRUBIN,DIRECT 0.4 mg/dL (0.0-0.4); BILIRUBIN,TOTAL 0.5 mg/dL (0.2-1.3); BLOOD UREA NITROGEN 10 mg/dL (7-20); CARBON DIOXIDE 21 mmol/L (22-30); CHLORIDE 110 mmol/L (98-107); CREATININE RESULT 0.76 mg/dL (0.52-1.25); GLUCOSE 82 mg/dL (75-110); MAGNESIUM 1.9 mg/dL (1.6-2.3); POTASSIUM 3.5 mmol/L (3.6-5.0); SODIUM 144.9 mmol/L (137-145); TOTAL PROTEIN 7.6 g/dL (6.3-8.2)
[2017-05-31 17:43] VITALS: BP 130/77
== END 2017-05-31 17:45 | disposition home or self-care (01) ==
LOC: ER 13:30
DX: R11.2 Nausea with vomiting, unspecified (principal); R10.11 Right upper quadrant pain; R19.7 Diarrhea, unspecified; Z88.6 Allergy status to analgesic agent; Z88.8 Allergy status to other drugs, medicaments and biological substances; Z86.39 Personal history of other endocrine, nutritional and metabolic disease
CPT/HCPCS: 99284; 96374; 36415; 83735; 85025; 80053; J2765

== ENCOUNTER 2018-04-06 18:33 | Emergency (ER) | payer MEDICARE, MEDICAID ==
[2018-04-06 19:27] LABS: ABSOLUTE BASOPHILS # (AUTO) 0.1 10^3/uL (0.0-0.2); ABSOLUTE EOSINOPHILS # (AUTO) 0.2 10^3/uL (0.0-0.6); ABSOLUTE MONOCYTES (AUTO) 0.9 10^3/uL (0.1-1.4); ABSOLUTE NEUT (AUTO) 5.4 10^3/uL (1.7-8.2); BASOPHILS % (AUTO) 0.7 % (0-2); HEMATOCRIT 37.6 % (36.0-47.0); HEMOGLOBIN 13.1 g/dL (12.0-15.5); LYMPHOCYTES % (AUTO) 37.9 % (13-45); MEAN CORPUSCULAR HEMOGLOBIN 27.2 pg (27.0-33.4); MEAN CORPUSCULAR VOLUME 78 fl (80-97); MONOCYTES % (AUTO) 8.6 % (3-13); PLATELET COUNT 367 10^3/uL (150-450); RED BLOOD COUNT 4.83 10^6/uL (3.72-5.28); RED CELL DISTRIBUTION WIDTH 14.8 % (11.5-14.0); SEGMENTED NEUTROPHILS % (AUTO) 50.8 % (42-78); TOTAL CELLS COUNTED % (AUTO) 100 %; WHITE BLOOD COUNT 10.6 10^3/uL (4.0-10.5)
[2018-04-06 19:51] LABS: ALANINE AMINOTRANSFERASE 117 U/L (9-52); ALBUMIN 3.9 g/dL (3.5-5.0); ALKALINE PHOSPHATASE 105 U/L (38-126); ANION GAP 11 (5-19); ASPARTATE AMINO TRANSFERASE 70 U/L (14-36); BILIRUBIN,DIRECT 0.2 mg/dL (0.0-0.4); BILIRUBIN,TOTAL 0.4 mg/dL (0.2-1.3); BLOOD UREA NITROGEN 16 mg/dL (7-20); CARBON DIOXIDE 26 mmol/L (22-30); CHLORIDE 106 mmol/L (98-107); GLUCOSE 100 mg/dL (75-110); POTASSIUM 3.6 mmol/L (3.6-5.0)
[2018-04-06 19:55] LABS: ACETAMINOPHEN < 10 ug/mL (10-30); ALCOHOL < 10 mg/dL (NONE DETECTED); SALICYLATE < 1.0 mg/dL (2.0-20.0)
--- NOTE | 2018-04-06 19:58 | ER Document Report ---
ED General - General Chief Complaint: Suicidal Ideation Stated Complaint: SUICIDAL IDEATION Time Seen by Provider: 04/06/18 19:56 Notes: The patient is a 42-year-old female, past medical history depression, presents with depression and chronic right upper chest wall pain. She was just discharged from [facility] and is taking her psychiatric medications. She did not tell her outpatient therapist that she was having increased thoughts of hurting herself. According to the patient, she had a knife to her throat and her mom called 911. Patient denies shortness of breath, leg swelling, hemoptysis, nausea, vomiting, abdominal pain, hallucinations or increased stress. TRAVEL OUTSIDE OF THE [place] IN LAST 30 DAYS: No - Related Data Allergies/Adverse Reactions: aspirin Allergy (Verified 04/06/18 18:35) ibuprofen Allergy (Verified 04/06/18 18:35) NSAIDS (Non-Steroidal Anti-Inflamma Allergy (Verified 04/06/18 18:35) Hives Past Medical History - General Information source: Patient - Social History Smoking Status: Never Smoker Chew tobacco use (# tins/day): No Frequency of alcohol use: None Drug Abuse: None Family History: CAD Patient has suicidal ideation: Yes Patient has homicidal ideation: No - Past Medical History Cardiac Medical History: Reports: Hx Hypercholesterolemia Renal/ Medical History: Denies: Hx Peritoneal Dialysis Musculoskeletal Medical History: Reports Hx Arthritis - OA Past Surgical History: Reports: Hx Gynecologic Surgery - hysterectomy Review of Systems - Review of Systems Notes: REVIEW OF SYSTEMS: CONSTITUTIONAL: -fevers, -chills EENT: -eye pain, -difficulty swallowing, -nasal congestion CARDIOVASCULAR: +chest pain, -syncope. RESPIRATORY: -cough, -SOB GASTROINTESTINAL: -abdominal pain, -nausea, -vomiting, -diarrhea GENITOURINARY: -dysuria, -hematuria MUSCULOSKELETAL: -back pain, -neck pain SKIN: -rash or skin lesions. HEMATOLOGIC: -easy bruising or bleeding. LYMPHATIC: -swollen, enlarged glands. NEUROLOGICAL: -altered mental status or loss of consciousness, -headache, - neurologic symptoms PSYCHIATRIC: -anxiety, +depression. ALL OTHER SYSTEMS REVIEWED AND NEGATIVE. Physical Exam - Vital signs Vitals: Temp Pulse Resp BP Pulse Ox 97.8 F 96 14 142/72 H 98 04/06/18 18:46 04/06/18 18:46 04/06/18 18:46 04/06/18 18:46 04/06/18 18:46 - Notes Notes: PHYSICAL EXAMINATION: GENERAL: Well-appearing, well-nourished and in no acute distress. HEAD: Atraumatic, normocephalic. EYES: Pupils equal round and reactive to light, extraocular movements intact, sclera anicteric, conjunctiva are normal. ENT: nares patent, oropharynx clear without exudates. Moist mucous membranes. NECK: Normal range of motion, supple without lymphadenopathy LUNGS: Breath sounds clear to auscultation bilaterally and equal. No wheezes rales or rhonchi. HEART: Regular rate and rhythm without murmurs ABDOMEN: Soft, nontender, normoactive bowel sounds. No guarding, no rebound. No masses appreciated. EXTREMITIES: Normal range of motion, no pitting or edema. No cyanosis. NEUROLOGICAL: Cranial nerves grossly intact. Normal speech, normal gait. Normal sensory and motor exams. PSYCH: Normal mood, normal affect. SKIN: Warm, Dry, normal turgor, no rashes or lesions noted. Course - Re-evaluation Re-evalutation: 04/06/18 20:26 Pt appears well and is in no acute distress. Her EKG does not show ischemic changes and troponin is negative. His chest pain is chronic in nature and her HEART score is 2. She is safe for outpatient follow-up for her chest pain. She is PERC negative, so PE is ruled out. Patient is medically cleared and will have mental health evaluate patient in the morning and make further recommendations. She already has an outpatient therapist and was just at [facility]. - Vital Signs Vital signs: Temp Pulse Resp BP Pulse Ox 97.8 F 96 18 142/72 H 98 04/06/18 18:46 04/06/18 18:46 04/06/18 18:57 04/06/18 18:46 04/06/18 18:46 - Laboratory Result Diagrams: 04/06/18 18:58 04/06/18 18:58 Laboratory results interpreted by me: 04/06/18 04/06/18 18:58 18:58 WBC 10.6 H MCV 78 L RDW 14.8 H AST 70 H ALT 117 H Salicylates < 1.0 L Acetaminophen < 10 L - Diagnostic Test Radiology reviewed: Image reviewed, Reports reviewed Radiology results interpreted by me: CXR: NAD - EKG Interpretation by Me EKG shows normal: Sinus rhythm, [place], Intervals, QRS Complexes, ST-T Waves Rate: Normal When compared to previous EKG there are: No significant change Discharge - Discharge Clinical Impression: Suicidal ideation Chest pain Qualifiers: Chest pain type: unspecified Qualified Code(s): R07.9 - Chest pain, unspecified Condition: Stable
[2018-04-06 20:33] LABS: APPEARANCE,URINE CLOUDY; BILIRUBIN,URINE NEGATIVE (NEGATIVE); GLUCOSE, URINE NEGATIVE (NEGATIVE); KETONES,URINE NEGATIVE (NEGATIVE); LEUKOCYTE ESTERASE,URINE TRACE (NEGATIVE); NITRITE,URINE POSITIVE (NEGATIVE); PROTEIN,URINE NEGATIVE (NEGATIVE); URINE SPECIFIC GRAVITY 1.027; UROBILINOGEN,URINE NEGATIVE mg/dL (<2.0)
--- NOTE | 2018-04-06 20:33 | RADIOLOGY REPORT (SQ) ---
EXAM DESCRIPTION: CHEST 2 VIEWS COMPLETED DATE/TIME: 04/06/2018 8:10 pm REASON FOR STUDY: chest pain COMPARISON: 04/04/2017 EXAM PARAMETERS: NUMBER OF VIEWS: two views TECHNIQUE: Digital Frontal and Lateral radiographic views of the chest acquired. RADIATION DOSE: NA LIMITATIONS: none FINDINGS: LUNGS AND PLEURA: No opacities, masses or pneumothorax. No pleural effusion. MEDIASTINUM AND HILAR STRUCTURES: No masses or contour abnormalities. HEART AND VASCULAR STRUCTURES: Heart normal size. No evidence for failure. BONES: No acute findings. HARDWARE: None in the chest. OTHER: No other significant finding. IMPRESSION: NO ACUTE RADIOGRAPHIC FINDING IN THE CHEST. TECHNICAL DOCUMENTATION: JOB ID: [id number] [employer]- All Rights Reserved Reading location - IP/workstation name: [email or web address]
[2018-04-06 20:34] LABS: COLOR,URINE YELLOW
[2018-04-06 20:47] LABS: URINE AMPHETAMINES SCREEN NEGATIVE; URINE BARBITURATES SCREEN NEGATIVE; URINE BENZODIAZEPINES SCREEN NEGATIVE; URINE COCAINE SCREEN NEGATIVE; URINE MARIJUANA (THC) SCREEN NEGATIVE; URINE METHADONE SCREEN NEGATIVE; URINE PHENCYCLIDINE SCREEN NEGATIVE
[2018-04-06] MEDS ORDERED: VENLAFAXINE HCL 75 MG CAP.SR.24H PO ONE (23:00)
[2018-04-06] MEDS ORDERED: ARIPIPRAZOLE 5 MG TABLET PO ONE (23:00)
--- NOTE | 2018-04-06 23:01 | EKG REPORT ---
SEVERITY:- NORMAL ECG - SINUS RHYTHM : Confirmed by: Roberta Erickson MD 06-Apr-2018 23:00:57
[2018-04-06] MEDS ORDERED: CLONAZEPAM 1 MG TABLET PO ONE (23:30)
[2018-04-06] MEDS ORDERED: DOXAZOSIN MESYLATE 4 MG TABLET PO ONE (23:30)
[2018-04-07] MEDS: VENLAFAXINE HCL 75 MG CAP.SR.24H PO SCH ×2 (09:17→17:23)
[2018-04-07] MEDS: CLONAZEPAM 1 MG TABLET PO SCH ×2 (09:18→17:26)
--- NOTE | 2018-04-07 09:22 | ER Document Report ---
Doctor's Note Notes: 04/07/18 09:22 42-year-old female with past medical history of depression who was recently discharged from [facility] presents today with some suicidal ideations. Patient supposedly had a knife to her throat mom called 911. Labs as recorded. Vital signs are currently stable. Patient has received Macrobid. I have added a urine culture. Awaiting psychiatry/psychology evaluation. Cardiac panel is recorded. Heart score is 2. 04/07/18 17:44 Patient has been seen and evaluated by the psychology department. Patient still denies any abdominal pain or dysuria. Both the patient and the aunt (it was her aunt and not her mom) very comfortable with the patient going home. I will start the patient on Macrobid. Patient has follow-up with AUDREY Simpson. It appears that the patient was very upset that her father said something mean to her. She denies any suicidal ideations at this time. She is very calm and cooperative.
[2018-04-07] MEDS: NITROFURANTOIN MONOHYD/M-CRYST 100 MG CAPSULE PO SCH ×2 (09:33→17:25)
[2018-04-07] MEDS ORDERED: QUINIDINE PO SCH (10:00)
[2018-04-07] MEDS ORDERED: DEXTROMETHORPHAN HBR PO SCH (10:00)
[2018-04-07] MEDS ORDERED: ACETAMINOPHEN 325 MG TABLET PO ONE (13:29)
[2018-04-07] MEDS ORDERED: CIPROFLOXACIN HCL/DEXAMETH OTIC DROP 7.5 ML AS SCH (13:30)
[2018-04-07 18:18] VITALS: BP 112/60
[2018-04-07] MEDS ORDERED: ARIPIPRAZOLE 5 MG TABLET PO SCH (22:00)
[2018-04-07] MEDS ORDERED: DOXAZOSIN MESYLATE 4 MG TABLET PO SCH (22:00)
== END 2018-04-07 18:18 | disposition home or self-care (01) ==
LOC: ER 18:33
DX: R45.851 Suicidal ideations (principal); N39.0 Urinary tract infection, site not specified; R07.89 Other chest pain; G89.29 Other chronic pain; F32.9 Major depressive disorder, single episode, unspecified; Z88.6 Allergy status to analgesic agent; Z88.8 Allergy status to other drugs, medicaments and biological substances; Z82.49 Family history of ischemic heart disease and other diseases of the circulatory system
CPT/HCPCS: 93005; 99285; 36415; 87086; 80307 ×4; 85025; 81025; 87088; 80053; 81001; 84484; 87186; 71046; 93010; A9270 ×8; J8499

== ENCOUNTER 2018-04-11 19:37 | Emergency (ER) | payer MEDICARE, MEDICAID ==
[2018-04-11] MEDS ORDERED: ACETAMINOPHEN 325 MG TABLET PO ONE (20:02)
[2018-04-11] MEDS ORDERED: SULFAMETHOXAZOLE/TRIMETHOPRIM 800-160 MG TABLET PO ONE (20:03)
[2018-04-11] MEDS ORDERED: CEPHALEXIN 500 MG CAPSULE PO ONE (20:03)
--- NOTE | 2018-04-11 20:04 | ER Document Report ---
ED General - General Chief Complaint: Insect Bite Stated Complaint: SPIDER BITE Time Seen by Provider: 04/11/18 19:58 TRAVEL OUTSIDE OF THE [place] IN LAST 30 DAYS: No - HPI Notes: 42-year-old female presents with "spider bite". Patient states sometimes this morning she thinks something bit her in her right calf. She did not exactly see the insect or envenomation. Since then she has had increasing pain swelling and redness circumferentially out from what looks to be a boil or ingrown hair. Throbbing aching pain, nonradiating. Rapid onset. No other modifying factors, no other associated symptoms, no other provocative or palliative factors. - Related Data Allergies/Adverse Reactions: aspirin Allergy (Verified 04/06/18 18:35) ibuprofen Allergy (Verified 04/06/18 18:35) NSAIDS (Non-Steroidal Anti-Inflamma Allergy (Verified 04/06/18 18:35) Hives Past Medical History - Social History Smoking Status: Smoker,Current Status Unk Family History: CAD - Past Medical History Cardiac Medical History: Reports: Hx Hypercholesterolemia Renal/ Medical History: Denies: Hx Peritoneal Dialysis Musculoskeletal Medical History: Reports Hx Arthritis - OA Past Surgical History: Reports: Hx Gynecologic Surgery - hysterectomy Review of Systems - Review of Systems Notes: Review of systems as in the history of present illness, otherwise negative x 10 systems. Physical Exam - Vital signs Vitals: Temp Pulse Resp BP Pulse Ox 98.4 F 94 16 124/70 100 04/11/18 19:43 04/11/18 19:43 04/11/18 19:43 04/11/18 19:43 04/11/18 19:43 - Notes Notes: General: Well devloped, no acute distress. HEENT: Normocephalic, atraumatic. Pupils equal round reactive to light. Mucosa moist. No JVD. Chest: No trauma, normal excursion. Respiratory: Good air exchange, normal excursion. Cardiac: Regular rhythm Abdomen: Soft, benign. Nondistended. Back: No asymmetry or gross abnormality. Motor: Grossly normal power and tone. Neurologic: Alert, nonfocal. Vascular: Well perfused Skin: No petechiae or purpura Extremities: Approximately 8 cm diameter area of erythema that blanches with central area of likely ingrown hair or boil. Consistent with cellulitis. Normal neurovascular exam Course - Re-evaluation Re-evalutation: 04/11/18 20:08 Appearing female with cellulitis no clear evidence of abscess. Will cover with Keflex and Bactrim given her equivocal history of recurrent infections. Tylenol for pain, return if worsening. - Vital Signs Vital signs: Temp Pulse Resp BP Pulse Ox 98.4 F 94 16 124/70 100 04/11/18 19:43 04/11/18 19:43 04/11/18 19:43 04/11/18 19:43 04/11/18 19:43 Discharge - Discharge Clinical Impression: Cellulitis Qualifiers: Site of cellulitis: extremity Site of cellulitis of extremity: lower extremity Laterality: right Qualified Code(s): L03.115 - Cellulitis of right lower limb Condition: Good Disposition: HOME, SELF-CARE Prescriptions: Cephalexin Monohydrate [Keflex 500 mg Capsule] 500 mg PO Q6H 7 Days #28 capsule Sulfamethoxazole/Trimethoprim [Bactrim Ds Tablet] 1 each PO Q12 7 Days #14 tablet
[2018-04-11 20:43] VITALS: BP 125/81
== END 2018-04-11 20:53 | disposition home or self-care (01) ==
LOC: ER 19:37
DX: L03.115 Cellulitis of right lower limb (principal); Z88.6 Allergy status to analgesic agent; Z88.8 Allergy status to other drugs, medicaments and biological substances
CPT/HCPCS: 99281; A9270 ×3

== ENCOUNTER 2018-04-13 00:38 | Emergency (ER) | payer MEDICAID, MEDICARE ==
[2018-04-13] MEDS ORDERED: VANCOMYCIN HCL INJ 1000 MG VIAL IV ONE (01:51)
[2018-04-13] MEDS ORDERED: CEFTRIAXONE INJ 1000 MG VIAL IV ONE (01:51)
[2018-04-13] MEDS ORDERED: HYDROMORPHONE HCL INJ/PF 2 MG/ML AMPULE IV ONE (02:33)
[2018-04-13 03:12] LABS: ABSOLUTE BASOPHILS # (AUTO) 0.1 10^3/uL (0.0-0.2); ABSOLUTE EOSINOPHILS # (AUTO) 0.2 10^3/uL (0.0-0.6); ABSOLUTE LYMPHOCYTES (AUTO) 2.8 10^3/uL (0.5-4.7); ABSOLUTE MONOCYTES (AUTO) 0.9 10^3/uL (0.1-1.4); ABSOLUTE NEUT (AUTO) 8.4 10^3/uL (1.7-8.2); BASOPHILS % (AUTO) 0.6 % (0-2); EOSINOPHILS % (AUTO) 1.9 % (0-6); HEMATOCRIT 38.2 % (36.0-47.0); HEMOGLOBIN 12.8 g/dL (12.0-15.5); LYMPHOCYTES % (AUTO) 22.3 % (13-45); MEAN CORPUSCULAR HEMOGLOBIN 26.4 pg (27.0-33.4); MEAN CORPUSCULAR HGB CONC 33.5 g/dL (32.0-36.0); MEAN CORPUSCULAR VOLUME 79 fl (80-97); MONOCYTES % (AUTO) 7.2 % (3-13); PLATELET COUNT 407 10^3/uL (150-450); RED BLOOD COUNT 4.83 10^6/uL (3.72-5.28); RED CELL DISTRIBUTION WIDTH 15.3 % (11.5-14.0); TOTAL CELLS COUNTED % (AUTO) 100 %; WHITE BLOOD COUNT 12.4 10^3/uL (4.0-10.5)
[2018-04-13 03:21] LABS: ANION GAP 10 (5-19); BLOOD UREA NITROGEN 15 mg/dL (7-20); CALCIUM 9.5 mg/dL (8.4-10.2); CARBON DIOXIDE 28 mmol/L (22-30); CHLORIDE 107 mmol/L (98-107); GLUCOSE 88 mg/dL (75-110); POTASSIUM 3.8 mmol/L (3.6-5.0); SODIUM 144.9 mmol/L (137-145)
[2018-04-13] MEDS ORDERED: ONDANSETRON HCL INJ/PF 4 MG/2 ML SDV IV ONE (03:35)
--- NOTE | 2018-04-13 04:18 | ER Document Report ---
ED General <OLIVARESIDANIA - Last Filed: 04/13/18 08:20> <DONTA ARMSTRONG - Last Filed: 04/13/18 09:52> <WYATT CATHERINE - Last Filed: 04/13/18 23:04> - General Chief Complaint: Psych Problem Stated Complaint: INSECT BITE Time Seen by Provider: 04/13/18 01:36 Notes: Patient is a 42-year-old female who was seen approximately 36 hours ago. That time she diagnosed cellulitis and placed on 2 antibiotics for treatment. Patient says that whenever she takes antibiotics it makes her nauseous. She does not have any nausea medicine and therefore says that she will vomit if she takes them and therefore has not taken antibiotics. She says the redness her leg is spreading. No fevers. She has had small amount of drainage from the area where there is a small infected hair follicle at the center of the cellulitis. Patient is also very tearful on exam. She says that she has been suicidal because of history of PTSD and she keeps thinking about things from her childhood. She said because of this she thought about suicide today took about 10 BuSpar tablets. She also wants to speak with psychiatry. Patient has no other complaints at this time. (WYATT CATHERINE) - Related Data Allergies/Adverse Reactions: aspirin Allergy (Verified 04/13/18 02:49) ibuprofen Allergy (Verified 04/13/18 02:49) NSAIDS (Non-Steroidal Anti-Inflamma Allergy (Verified 04/13/18 02:49) Hives Past Medical History - Social History Smoking Status: Never Smoker Chew tobacco use (# tins/day): No Frequency of alcohol use: None Drug Abuse: None Family History: CAD Patient has suicidal ideation: Yes Patient has homicidal ideation: No - Past Medical History Cardiac Medical History: Reports: Hx Hypercholesterolemia Renal/ Medical History: Denies: Hx Peritoneal Dialysis Musculoskeletal Medical History: Reports Hx Arthritis - OA Psychiatric Medical History: Reports: Hx Depression Past Surgical History: Reports: Hx Appendectomy, Hx Gynecologic Surgery - hysterectomy, Hx Hysterectomy <WYATT CATHERINE - Last Filed: 04/13/18 23:04> Review of Systems <IDANIA OLIVARES - Last Filed: 04/13/18 08:20> <DONTA ARMSTRONG - Last Filed: 04/13/18 09:52> <WYATT CATHERINE - Last Filed: 04/13/18 23:04> - Review of Systems Notes: My Normal Review Basic REVIEW OF SYSTEMS: CONSTITUTIONAL : Denies fever, chills, or sweats. RESPIRATORY: Denies cough, cold, or chest congestion. Denies shortness of breath, difficulty breathing, or wheezing. GASTROINTESTINAL: Denies abdominal pain. Denies nausea, vomiting, or diarrhea. GENITOURINARY: Denies difficulty urinating, painful urination, burning, frequency, or blood in urine. MUSCULOSKELETAL: Denies neck or back pain or joint pain or swelling. SKIN: Cellulitis right leg NEUROLOGICAL: Denies sensory or motor loss. Psychiatric: Thoughts of suicide. ALL OTHER SYSTEMS REVIEWED AND NEGATIVE. (WYATT CATHERINE) Physical Exam <IDANIA OLIVARES - Last Filed: 04/13/18 08:20> <DONTA ARMSTRONG - Last Filed: 04/13/18 09:52> <WYATT CATHERINE - Last Filed: 04/13/18 23:04> - Vital signs Vitals: Temp Pulse Resp BP Pulse Ox 98.1 F 101 H 16 151/82 H 100 04/13/18 01:19 04/13/18 01:19 04/13/18 01:19 04/13/18 01:19 04/13/18 01:19 - Notes Notes: General Appearance: Well nourished, alert, cooperative, no acute distress, no obvious discomfort. Very tearful on exam. Vitals: reviewed, See vital signs table. Head: no swelling or tenderness to the head Eyes: PERRL, EOMI, Conjuctiva clear Neck: Supple, no neck tenderness, No thyromegaly Lungs: No wheezing, No rales, No rhonci, No accessory muscle use, good air exchange bilaterally. Heart: Normal rate, Regular rythm, No murmur, no rub Abdomen: Normal BS, soft, No rigidity, No abdominal tenderness, No guarding, no rebound, no abdominal masses, Extremities: strength 5/5 in all extremities, good pulses in all extremities, patient has redness and swelling to the right leg. There is a small area of induration is only approximately 1-2 cm across at the center of cellulitis. Bedside ultrasound shows just a very small developing abscess in this area. Skin: warm, dry, appropriate color, no rash Neuro: speech clear, oriented x 3, normal affect, responds appropriately to questions. Catcher: Patient is very anxious and tearful. (WYATT CATHERINE) Course - Laboratory Result Diagrams: 04/13/18 02:43 04/13/18 02:43 <IDANIA OLIVARES - Last Filed: 04/13/18 08:20> - Laboratory Result Diagrams: 04/13/18 02:43 04/13/18 02:43 <DONTA ARMSTRONG - Last Filed: 04/13/18 09:52> - Laboratory Result Diagrams: 04/13/18 02:43 04/13/18 02:43 <WYATT CATHERINE - Last Filed: 04/13/18 23:04> - Re-evaluation Re-evalutation: 04/13/18 23:04 Patient is medically stable for psychiatric evaluation. Patient already has antibiotics at home for the cellulitis. I have prescribed her Zofran to take with them so that she can hold him down. I think a lot of her nausea vomiting sexually to her severe anxiety that she was having with her panic attack related to her PTSD and depression. She was referred for psychiatry for evaluation. Dictation of this chart was performed using voice recognition software; therefore, there may be some unintended grammatical errors. (WYATT CATHERINE) - Vital Signs Vital signs: Temp Pulse Resp BP Pulse Ox 97.4 F 87 20 119/75 100 04/13/18 10:15 04/13/18 10:15 04/13/18 10:15 04/13/18 10:15 04/13/18 10:15 - Laboratory Laboratory results interpreted by me: 04/13/18 04/13/18 04/13/18 02:43 02:43 07:08 WBC 12.4 H MCV 79 L MCH 26.4 L RDW 15.3 H Absolute Neutrophils 8.4 H Urine Urobilinogen 2.0 H Salicylates < 1.0 L Acetaminophen < 10 L - EKG Interpretation by Me Additional EKG results interpreted by me: 04/13/18 05:09 EKG is reviewed and interpreted by me. EKG shows sinus rhythm with rate of [address] segment elevation or depression. No ischemic T-wave inversions. [place] interval, QRS duration, QTc intervals are within normal range. No old EKG available for comparison at this time. (WYATT CATHERINE) Discharge <IDANIA OLIVARES - Last Filed: 04/13/18 08:20> <NATHANIELDONTA - Last Filed: 04/13/18 09:52> <WYATT CATHERINE - Last Filed: 04/13/18 23:04> - Discharge Clinical Impression: Suicidal ideation, PTSD (post-traumatic stress disorder) Cellulitis Qualifiers: Site of cellulitis: extremity Site of cellulitis of extremity: lower extremity Laterality: right Qualified Code(s): L03.115 - Cellulitis of right lower limb Depression Qualifiers: Depression Type: unspecified Qualified Code(s): F32.9 - Major depressive disorder, single episode, unspecified Condition: Stable Disposition: HOME, SELF-CARE Instructions: Cellulitis ([facility]), Depression ([facility]), Post-Traumatic Stress Disorder ([facility]) Additional Instructions: Please take the zofran 30 minutes before you take your antibiotics. Take your antibiotics with food. Follow up with your doctor in 2 days for reevaluation of your leg. Return to the ER imemdiately if you have fevers, spreading redness, intractable vomiting, or feel unwell. You have been evaluated by both medical and behavioral health teams and have been deemed appropriate for discharge. You are recommended to continue working with [facility] and [facility] for your outpatient mental health services. Prescriptions: Ondansetron [Zofran Odt 4 mg Tablet] 1 tab PO Q4H PRN #15 tab.rapdis PRN Reason: For Nausea/Vomiting Referrals: [facility] [Outside] - 04/13/18 [facility] [Outside] - Follow up in 3-5 days
[2018-04-13 04:30] LABS: ACETAMINOPHEN < 10 ug/mL (10-30); ALCOHOL < 10 mg/dL (NONE DETECTED); SALICYLATE < 1.0 mg/dL (2.0-20.0)
--- NOTE | 2018-04-13 08:20 | PSYCHOLOGICAL NOTE ---
Psych Note - Psych Note Psych Note: Reason for Consult: suicidal ideation Patient is a 42-year-old female who was seen approximately 36 hours ago. At that time, she diagnosed with cellulitis and placed on 2 antibiotics for treatment. She reports that whenever she takes the antibiotics it makes her nauseous. Patient is very tearful and says that she has been suicidal because of history of PTSD and she keeps thinking about things from her childhood. She said because of this she thought about suicide today took about 10 BuSpar tablets. She also wants to speak with psychiatry. Patient reports she has been crying uncontrollably in the very depressed. She reports that for the last 2 days she has been having flashbacks from her childhood. She reports yesterday she called [employer]. She reports she took 10 BuSpar because she became so depressed. She confirms that she did not disclose this information to [employer]; it is also noted the patient came to [facility] stating she needed to be seen for a spider bite and did not disclose taking too much of her medications until after getting into a room. She reports she was scared to tell anyone. She states she has an appointment to meet with [employer] again today for resources and possible voluntary bed at [facility]. She denies current suicidal ideation. Her outpatient mental health provider is [facility] for medication management, she does not receive therapeutic services currently. She is interested in therapy and disclosed [facility] is assisting her in obtaining those services. Patient reports she curretnly takes clonidine, Effexor, prazosin, BuSpar, and Neudexta. Clinician notes patient takes Neudexta for her uncontrollable crying outbursts, patient confirms that her uncontrollable crying that she is concerned about experiencing for the last two days is chronic and not a new onset. Patient is alert and orientated to person, place, time and circumstance. Mood is euthymic however patient is noted to have a forced or overly expressed frown/ pout. Clinician notes patient is not tearful or showing any other signs of dysphoric mood. Patient denies current suicidal homicidal ideation but discloses taking too many BuSpar last night. Delusions are absent and behaviors congruent with intact reality based presentation i.e. organized and linear thought process. Eye contact is well-maintained. Conversational speech was within normal rate, tone and prosody. Intellectual abilities appear to be within the average range. Attention and concentration are good. Insight, judgment, impulse control are fair. No medication recommendations at this time Diagnosis 311 (F32.9) Unspecified Depressive Disorder, per history 309.81 (F43.10) posttraumatic stress disorder per history provided by patient Impression\plan: Patient is cleared from acute psychiatric services. Patient reports that she is already reached out to [facility] and is in the process of possibly obtaining a voluntary bed at [facility]. Patient does not meet IVC criteria per [place] 122C. Patient denies current suicidal ideation. Patient is engaging in services for mediation management and [facility] reportedly is assisting her with obtaining therapeutic services and a possible voluntary bed at [facility]. She is recommended to continue working with [facility] and [facility]. Dr. Campbell was consulted in the care and management of this patient, attending physician is in agreement with recommendations and disposition.
[2018-04-13 08:28] LABS: APPEARANCE,URINE SLIGHTLY-CLOUDY; BILIRUBIN,URINE NEGATIVE (NEGATIVE); COLOR,URINE YELLOW; GLUCOSE, URINE NEGATIVE (NEGATIVE); KETONES,URINE NEGATIVE (NEGATIVE); LEUKOCYTE ESTERASE,URINE NEGATIVE (NEGATIVE); NITRITE,URINE NEGATIVE (NEGATIVE); PROTEIN,URINE NEGATIVE (NEGATIVE); URINE SPECIFIC GRAVITY 1.031
[2018-04-13 08:40] LABS: URINE AMPHETAMINES SCREEN NEGATIVE; URINE BARBITURATES SCREEN NEGATIVE; URINE BENZODIAZEPINES SCREEN NEGATIVE; URINE COCAINE SCREEN NEGATIVE; URINE MARIJUANA (THC) SCREEN UNCONFIRMED POSITIVE; URINE METHADONE SCREEN NEGATIVE; URINE PHENCYCLIDINE SCREEN NEGATIVE
[2018-04-13] MEDS ORDERED: CLONAZEPAM 1 MG TABLET PO ONE (10:02)
[2018-04-13 10:50] VITALS: BP 119/75
--- NOTE | 2018-04-13 21:24 | EKG REPORT ---
SEVERITY:- NORMAL ECG - SINUS RHYTHM : Confirmed by: Juan England 13-Apr-2018 21:23:12
== END 2018-04-13 10:20 | disposition home or self-care (01) ==
LOC: ER 00:38
DX: F43.10 Post-traumatic stress disorder, unspecified (principal); L03.115 Cellulitis of right lower limb; F32.9 Major depressive disorder, single episode, unspecified; R45.851 Suicidal ideations; F41.0 Panic disorder [episodic paroxysmal anxiety]; F41.9 Anxiety disorder, unspecified; Z88.6 Allergy status to analgesic agent; Z88.8 Allergy status to other drugs, medicaments and biological substances
CPT/HCPCS: 93005; 99285; 36415; 80307 ×4; 84703; 85025; 80048; 81001; 93010; A9270; J1170; J0696; J2405; J3370